=== PATIENT | female | born 1990 | race Caucasian/White ===

== ENCOUNTER 2019-09-03 15:38 | Emergency (ER) | payer BC ==
[2019-09-03] MEDS ORDERED: Sodium Chloride 0.9% 10 ML Syringe FLUSH PRN (16:01)
[2019-09-03] MEDS ORDERED: Sodium Chloride 0.9% 1,000 ML IV ONE (16:23)
--- NOTE | 2019-09-03 16:29 | EDM.PDOC ---
ED HPI GENERAL MEDICAL PROBLEM - General Source of Information: Reports: Patient History Limitations: Reports: No Limitations Pelvic Pain Score (Numeric/FACES): 5 <Karyna Greenwood - Last Filed: 09/03/19 16:14> <Sondra Carter - Last Filed: 09/03/19 20:57> - General Chief Complaint: PRICING ASSOCIATE Problem Stated Complaint: 8 WEEKS AND BLEEDING/CRAMPING/NAUSEA Time Seen by Provider: 09/03/19 15:53 - History of Present Illness INITIAL COMMENTS - FREE TEXT/NARRATIVE: Jaz is a pleasant 28 yo female at 8 weeks gestation who presents to the ED today c/o vaginal bleeding, cramping and nausea. The vaginal bleeding started approximately two weeks ago and she is using about 1.5 pads a day to control the bleeding. She has been nauseous and admits to "dry heaving" every other day. Her cramping feels like period cramps diffusely across her lower abdomen. She had a transvaginal ultrasound done on Sunday at [facility] and they call this morning and told her she "might have an ectopic ." ( Karyna Greenwood) I have read and reviewed the student's HPI and examined the patient and agree with ROMAN Guerrero-student. The patient's PRICING ASSOCIATE is a Vanessa Peterson, who is a fertility specialist in [place]. Patient further notes that her blood type at the last visit is A positive. She states her quantitative hCG level at last visit was 1640. (Sondra Carter) - Related Data Allergies Allergy/AdvReac Type Severity Reaction Status Date / Time Sulfa (Sulfonamide Allergy Seizure Verified 09/03/19 15:57 Antibiotics) Home Meds: Home Meds PNV95/Ferrous Fumarate/FA [ Tablet] 1 tab PO DAILY 09/03/19 [History] Past Medical History - Past Surgical History HEENT Surgical History: Reports: Oral Surgery Musculoskeletal Surgical History: Reports: Other (See Below) Other Musculoskeletal Surgeries/Procedures:: ganglion cyst removed from top of right hand <Karyna Greenwood - Last Filed: 09/03/19 16:14> Social & Family History - Tobacco Use Smoking Status *Q: Never Smoker - Caffeine Use Caffeine Use: Reports: Coffee, Soda, Tea - Recreational Drug Use Recreational Drug Use: No <Karyna Greenwood - Last Filed: 09/03/19 16:14> ED ROS GENERAL - Review of Systems Review Of Systems: See Below Constitutional: Reports: No Symptoms HEENT: Reports: No Symptoms Respiratory: Reports: No Symptoms Cardiovascular: Reports: No Symptoms Endocrine: Reports: No Symptoms GI/Abdominal: Reports: Abdominal Pain : Reports: Other (vaginal bleeding x 2 weeks ) Skin: Reports: No Symptoms Neurological: Reports: No Symptoms Psychiatric: Reports: No Symptoms Hematologic/Lymphatic: Reports: No Symptoms Immunologic: Reports: No Symptoms <Karyna Greenwood - Last Filed: 09/03/19 16:14> ED EXAM - Physical Exam Exam: See Below Exam Limited By: No Limitations General Appearance: Alert, WD/WN, No Apparent Distress Respiratory/Chest: No Respiratory Distress, Lungs Clear, Normal Breath Sounds, No Accessory Muscle Use, Chest Non-Tender Cardiovascular: Normal Peripheral Pulses, Regular Rate, Rhythm, No Edema, No Gallop, No JVD, No Murmur, No Rub GI/Abdominal Exam: Normal Bowel Sounds, Soft, No Organomegaly, No Distention, No Abnormal Bruit, No Mass, Pelvis Stable, Tender (tender to palpation in LLQ). No: Non-Tender Extremities: Normal Inspection, Normal Range of Motion, Non-Tender, Normal Capillary Refill, No Pedal Edema Neurological: Alert, Oriented, CN II-XII Intact, Normal Cognition, Normal Gait, Normal Reflexes, No Motor/Sensory Deficits Psychiatric: Normal Affect, Normal Mood Skin Exam: Warm, Dry, Intact, Normal Color, No Rash Lymphatic: No Adenopathy <Karyna Greenwood - Last Filed: 09/03/19 16:14> - Physical Exam (Female) Exam: Normal External Exam (bright red blood noted at vaginal entrancse), Normal Speculum Exam, Cervical Dilatation (hard to see with blood and patient's body habitus, but looks mildly dilated.), Vaginal Bleeding. No: Tissue Present in Cervix/Vagina Heart Tones: Not [place] Movement: Not Appreciated <Sondra Carter - Last Filed: 09/03/19 20:57> Course <Karyna Greenwood - Last Filed: 09/03/19 16:14> <Sondra Carter - Last Filed: 09/03/19 20:57> - Vital Signs Last Recorded V/S: Last Vital Signs Temp 97.8 F 09/03/19 18:10 Pulse 75 09/03/19 18:10 Resp 18 09/03/19 18:10 BP 119/79 09/03/19 18:10 Pulse Ox 99 09/03/19 18:10 - Orders/Labs/Meds Orders: Active Orders 24 hr Category Date Time Status Peripheral IV Care [RC] . DIRECTED Care 09/03/19 16:01 Active PATIENT RETYPE [BBK] Routine Lab 09/03/19 18:15 Ordered Peripheral IV Insertion Adult [OM.PC] Stat Oth 09/03/19 16:01 Ordered Labs: Laboratory Tests 09/03/19 09/03/19 09/03/19 Range/Units 16:25 16:25 16:25 WBC 14.62 H (3.98-10.04) K/mm3 RBC 5.05 (3.98-5.22) M/mm3 Hgb 13.4 (11.2-15.7) gm/dl Hct 41.9 (34.1-44.9) % MCV 83.0 (79.4-94.8) fl MCH 26.5 (25.6-32.2) pg MCHC 32.0 L (32.2-35.5) g/dl RDW Std Deviation 46.0 (36.4-46.3) fL Plt Count 439 H (182-369) K/mm3 MPV 8.8 L (9.4-12.3) fl Neut % (Auto) 63.9 (34.0-71.1) % Lymph % (Auto) 27.7 (19.3-51.7) % [place] % (Auto) 4.9 (4.7-12.5) % Eos % (Auto) 3.0 (0.7-5.8) Baso % (Auto) 0.3 (0.1-1.2) % Neut # (Auto) 9.34 H (1.56-6.13) K/mm3 Lymph # (Auto) 4.05 H (1.18-3.74) K/mm3 [place] # (Auto) 0.72 H (0.24-0.36) K/mm3 Eos # (Auto) 0.44 H (0.04-0.36) K/mm3 Baso # (Auto) 0.04 (0.01-0.08) K/mm3 Manual Slide Review HCG, Qual (NEGATIVE) HCG, Quant 1763.0 mIU/mL Blood Type A POSITIVE Gel Antibody Screen Negative 09/03/19 Range/Units 16:25 WBC (3.98-10.04) K/mm3 RBC (3.98-5.22) M/mm3 Hgb (11.2-15.7) gm/dl Hct (34.1-44.9) % MCV (79.4-94.8) fl MCH (25.6-32.2) pg MCHC (32.2-35.5) g/dl RDW Std Deviation (36.4-46.3) fL Plt Count (182-369) K/mm3 MPV (9.4-12.3) fl Neut % (Auto) (34.0-71.1) % Lymph % (Auto) (19.3-51.7) % [place] % (Auto) (4.7-12.5) % Eos % (Auto) (0.7-5.8) Baso % (Auto) (0.1-1.2) % Neut # (Auto) (1.56-6.13) K/mm3 Lymph # (Auto) (1.18-3.74) K/mm3 [place] # (Auto) (0.24-0.36) K/mm3 Eos # (Auto) (0.04-0.36) K/mm3 Baso # (Auto) (0.01-0.08) K/mm3 Manual Slide Review HCG, Qual Positive H (NEGATIVE) HCG, Quant mIU/mL Blood Type Gel Antibody Screen Meds: Medications Discontinued Medications Generic Name Dose Route Start Last Admin Trade Name Freq PRN Reason Stop Dose Admin Sodium Chloride 1,000 mls @ 999 mls/hr 09/03/19 16:23 09/03/19 16:30 Normal Saline IV 09/03/19 17:23 999 mls/hr ONETIME ONE Administration Ondansetron HCl 4 mg 09/03/19 17:48 09/03/19 17:52 Zofran IVPUSH 09/03/19 17:49 4 mg ONETIME ONE Administration Sodium Chloride 10 ml 09/03/19 16:01 09/03/19 16:30 Saline Flush FLUSH 10 ml ASDIRECTED PRN Administration Keep Vein Open - Re-Assessments/Exams Free Text/Narrative Re-Assessment/Exam: 09/03/19 16:50 Patient presents to the ED for evaluation of early and vaginal bleeding. She did have an evaluation done on Sunday, and the ultrasound results were somewhat confusing to them, so they come to the ER for management. Apparently they were told that the ultrasound could mean she was having a possible ectopic . I did gets an IV placed, some labs initially to include CBC, blood type, hCG Quant and call. An OB transvaginal ultrasound order was also placed, the [facility] did fax over the results of the transvaginal pelvic ultrasound done on Sunday, the impression was that there was no gestational sac or pole identified. Endometrium is heterogenous in appearance and measures approximately 1.1 cm. Endometrium is decreased in size since 08/25/19 weren't measured approximately 2.3 cm. Normal appearance of both ovaries which have multiple subcentimeter follicles within it. Trace amount of fluid within the posterior cul-de-sac. No discrete endometrial or uterine lesions were defined. The uterus measures approximate 4.3 x 7.6 x 5.6 cm. Right ovary measures 1.9 x 3.2 x 2.3 cm, left ovary measures 1.9 x 3.4 x 2.0 cm. This was performed at the [facility] in [facility]. Upon review of the ultrasound results, it appears that there is no fetus identified at all, so its highly unlikely that she is having an ectopic and more likely that she had passed any sort of tissue that she would've already had. 09/03/19 17:49 Patient's ultrasound has been completed, and demonstrates again no gestational sac within the endometrial cavity. Endometrial thickness at 1.2 cm. Ovary within normal limits, no other adnexal abnormalities, with no free fluid. Radiology read this as findings most likely represent miscarriage. The patient states she had her hCG level done yesterday and reported it to us as 1640, and our lab has resulted this at 1763 today. I have called Dr. Ríos for consult to see what she would recommend for further treatment. 09/03/19 17:59 Dr. Ríos did call back, and states there is not a lot to be done on our end for management, she states that the bleeding should be normal, and notes this is likely an impending miscarriage. She states that the patient has any sort of pain increased from just light cramping she is to return for evaluation. The patient is to follow-up with her PRICING ASSOCIATE tomorrow and have the quantitative hCG followed closely to make sure that everything is progressing the way it should. (Sondra Carter) Departure <Karyna Greenwood - Last Filed: 09/03/19 16:14> - Departure Time of Disposition: 18:01 - Discharge Information *PRESCRIPTION DRUG MONITORING PROGRAM REVIEWED*: No *COPY OF PRESCRIPTION DRUG MONITORING REPORT IN PATIENT SAM: No <Sondra Carter - Last Filed: 09/03/19 20:57> - Departure Disposition: Home, Self-Care 01 Clinical Impression: Incomplete - Discharge Information Instructions: Incomplete Miscarriage Referrals: Vanessa Peterson MD [Primary Care Provider] - Forms: ED Department Discharge Additional Instructions: You were evaluated in the ER today regarding your vaginal bleeding in . Your case was discussed with our PRICING ASSOCIATE on-call, Dr. Alayna Ríos, and after review of your ultrasound and labs, it is her professional opinion that this is an impending miscarriage. Your quantitative level at our visit was 1763. Your evaluation in this ER demonstrated that there is no fetus within the uterus , nor could one be identified on the ovaries or ovarian tubes. Vaginal bleeding is normal during this process, however if you should develop any sort of increased pain from just normal light cramping, or increased vaginal bleeding, this would be cause for concern to return directly to the ER for immediate management. You may take some [id number] Tylenol or ibuprofen 6 hours. for further pain management. Recommend that you follow up with the PRICING ASSOCIATE tomorrow, and have the hCG quantitative level rechecked to make sure that it is trending downward, and that you're miscarriage is progressing appropriately. Please return to the ED if your symptoms should change or worsen. - My Orders Last 24 Hours: My Active Orders 09/03/19 16:01 Peripheral IV Care [RC] . DIRECTED Peripheral IV Insertion Adult [OM.PC] Stat 09/03/19 18:15 PATIENT RETYPE [BBK] Routine - Assessment/Plan Last 24 Hours: My Active Orders 09/03/19 16:01 Peripheral IV Care [RC] . DIRECTED Peripheral IV Insertion Adult [OM.PC] Stat 09/03/19 18:15 PATIENT RETYPE [BBK] Routine
--- NOTE | 2019-09-03 17:29 | US ---
First trimester obstetrical ultrasound: Multiple real-time images were obtained transvaginally. Comparison: No previous study for current . Findings: No gestational sac is seen within the endometrial cavity. Endometrial thickness measures 1.2 cm. Ovaries appear within normal limits. No adnexal abnormalities are appreciated. No free fluid is seen. Impression: 1. No gestational sac is seen. Findings most likely represent miscarriage. Diagnostic code #3
[2019-09-03] MEDS ORDERED: Ondansetron 4 MG/2 ML SDV IVPUSH ONE (17:48)
== END 2019-09-03 18:10 | disposition home or self-care (01) ==
LOC: JD.ED 15:38
DX: O03.4 Incomplete spontaneous abortion without complication (principal); Z88.2 Allergy status to sulfonamides
CPT/HCPCS: 36415; 76817; 84702; 84703; 85025; 86850; 86900; 86901; 96361; 96374; 99284; J2405; J7040

== ENCOUNTER 2019-09-07 12:46 | Emergency (ER) | payer BC ==
[2019-09-07] MEDS ORDERED: Ondansetron 4 MG/2 ML SDV IVPUSH ONE (13:28)
[2019-09-07] MEDS ORDERED: HYDROmorphone 0.5 MG/0.5 ML Syringe IVPUSH ONE (13:28)
--- NOTE | 2019-09-07 13:29 | EDM.PDOC ---
ED HPI GENERAL MEDICAL PROBLEM - General Chief Complaint: OUTSIDE MAINTENANCE WORKER Problem Stated Complaint: POSSIBLE ECTOPIC Time Seen by Provider: 09/07/19 13:10 Source of Information: Reports: Patient History Limitations: Reports: No Limitations - History of Present Illness INITIAL COMMENTS - FREE TEXT/NARRATIVE: 28-year-old female who is 1 para 0 presents to the hospital due to increased lower abdominal cramping pain and heavy vaginal flow. Was felt to be around 04 July. She was felt to be 8 weeks however ultrasound done last September 01 did not reveal any signs of the pole or intrauterine . Certain the hospital was for a possible ectopic since her hormone of was elevated at 1640. Quantitative BHCG elevated into the 1783 range 2 days later. . Repeat ultrasound by -- OUTSIDE MAINTENANCE WORKER in [facility] did not show any intrauterine . Therefore the working diagnosis was an occult ectopic . She was given 2 injections one in each buttock of a dosage of methotrexate each is a weight based medication.. Patient has had increased bleeding start primary this morning with associated increased abdominal cramping pain. He was instructed to come to to the hospital the pain worsened considerably got better. She is post soaked about a pad and half in the last 24 hours. Certainly in no distress at this point time with minimal blood vaginal bleeding. He states the pain is worsened by sitting trying to have a bowel movement or to void. When she's lying flat pain is a 5 out of 10 when she sits it's 8 out of 10. Patient any clots or tissue per vagina. Patient has blood type group a positive Onset: Gradual Onset Date: 09/05/19 (Pain is suprapubic. Mildly into her back.) Duration: Day(s):, Getting Worse, Waxing/Waning Location: Reports: Abdomen Quality: Reports: Ache (Suprapubic abdominal pain radiating into her back.) Severity: Moderate Improves with: Reports: None Worsens with: Reports: None Context: Denies: Activity, Exercise, Lifting, Sick Contact, Trauma, Other Associated Symptoms: Reports: Nausea/Vomiting. Denies: No Other Symptoms, Confusion, Chest Pain, Cough, cough w sputum, Diaphoresis, Fever/Chills, Headaches, Loss of Appetite, Malaise, Rash, Seizure, Shortness of Breath, Syncope, Weakness (Nausea without vomiting) Treatments UMBRELLA TIPPER: Reports: Other (see below) (Motrin.) Lower Abdominal Pain Score (Numeric/FACES): 5 - Related Data Allergies Allergy/AdvReac Type Severity Reaction Status Date / Time Sulfa (Sulfonamide Allergy Seizure Verified 09/07/19 12:54 Antibiotics) Home Meds: Home Meds oxyCODONE HCl/Acetaminophen [Percocet 5-325 mg Tablet] 1 - 2 each PO Q4H PRN # 18 tablet 09/07/19 [Rx] Past Medical History : 1 Para: 0 - Past Surgical History HEENT Surgical History: Reports: Oral Surgery Musculoskeletal Surgical History: Reports: Other (See Below) Other Musculoskeletal Surgeries/Procedures:: ganglion cyst removed from top of right hand Social & Family History - Tobacco Use Smoking Status *Q: Never Smoker - Caffeine Use Caffeine Use: Reports: Coffee, Soda, Tea - Living Situation & Occupation Living situation: Reports: Single Occupation: Employed ED ROS GENERAL - Review of Systems Review Of Systems: See Below Constitutional: Reports: Malaise, Weakness, Fatigue, Decreased Appetite. Denies : Fever, Chills HEENT: Reports: No Symptoms Respiratory: Reports: No Symptoms Cardiovascular: Reports: No Symptoms Endocrine: Reports: Fatigue GI/Abdominal: Reports: Abdominal Pain (See history of present illness) : Reports: Other (Fairly heavy bleeding per vagina with associated dysmenorrhea. Known to be with no intrauterine identified on ultrasound in the last week.) Musculoskeletal: Reports: Back Pain Skin: Reports: No Symptoms (Low back pain.) Neurological: Reports: No Symptoms Psychiatric: Reports: No Symptoms ( Concern for ectopic still exists.) Hematologic/Lymphatic: Reports: No Symptoms Immunologic: Reports: No Symptoms ED EXAM - Physical Exam Exam: See Below Exam Limited By: Intoxication General Appearance: Alert, WD/WN, Mild Distress, Other (Temperatures 36.7. Pulse is 98 in sinus respiratory 16 BP 124/86 with sats of 99% on room air.) Eye Exam: Bilateral Eye: Normal Inspection (Normal) Throat/Mouth: Normal Inspection, Normal Lips, Normal Oropharynx Neck: Normal Inspection, Supple, Non-Tender, Full Range of Motion. No: Lymphadenopathy (L), Lymphadenopathy (R), Thyromegaly Respiratory/Chest: No Respiratory Distress, Lungs Clear, Normal Breath Sounds, No Accessory Muscle Use, Chest Non-Tender Cardiovascular: Regular Rate, Rhythm, No Edema, No Gallop, No Murmur, No Rub GI/Abdominal Exam: Soft (Bowel sounds are quiet sent and all 4 quadrants.), No Organomegaly, No Mass, Pelvis Stable, Tender, Abnormal Bowel Sounds. No: Guarding, Rigid (Mild tenderness suprapubically.), Rebound (Female) Exam: Enlarged Uterus, Vaginal Bleeding (Uterus feels 4 weeks in size. Bleeding per vagina.), Other (No tissue palpable at the cervix which is closed.). No: Cervical Dilatation Back Exam: Normal Inspection, Full Range of Motion. No: CVA Tenderness (L), CVA Tenderness (R) Extremities: Normal Inspection, Normal Range of Motion, Non-Tender, No Pedal Edema, Normal Capillary Refill Neurological: Alert, Oriented, CN II-XII Intact, Normal Cognition Psychiatric: Normal Affect, Normal Mood Skin Exam: Warm, Dry, Intact, Normal Color, No Rash Course - Vital Signs Last Recorded V/S: Last Vital Signs Temp 36.7 C 09/07/19 12:59 Pulse 98 09/07/19 12:59 Resp 16 09/07/19 12:59 BP 124/86 09/07/19 12:59 Pulse Ox 99 09/07/19 12:59 - Orders/Labs/Meds Labs: Laboratory Tests 09/07/19 09/07/19 Range/Units 13:53 13:53 WBC 12.23 H (3.98-10.04) K/mm3 RBC 4.77 (3.98-5.22) M/mm3 Hgb 12.6 (11.2-15.7) gm/dl Hct 39.6 (34.1-44.9) % MCV 83.0 (79.4-94.8) fl MCH 26.4 (25.6-32.2) pg MCHC 31.8 L (32.2-35.5) g/dl RDW Std Deviation 45.6 (36.4-46.3) fL Plt Count 439 H (182-369) K/mm3 MPV 8.9 L (9.4-12.3) fl Neut % (Auto) 55.7 (34.0-71.1) % Lymph % (Auto) 35.0 (19.3-51.7) % Greene % (Auto) 4.8 (4.7-12.5) % Eos % (Auto) 3.9 (0.7-5.8) Baso % (Auto) 0.4 (0.1-1.2) % Neut # (Auto) 6.80 H (1.56-6.13) K/mm3 Lymph # (Auto) 4.28 H (1.18-3.74) K/mm3 Greene # (Auto) 0.59 H (0.24-0.36) K/mm3 Eos # (Auto) 0.48 H (0.04-0.36) K/mm3 Baso # (Auto) 0.05 (0.01-0.08) K/mm3 Manual Slide Review Abnormal smear Sodium 138 (136-145) mEq/L Potassium 4.0 (3.5-5.1) mEq/L Chloride 105 (98-107) mEq/L Carbon Dioxide 25 (21-32) mEq/L Anion Gap 12.0 (5-15) BUN 5 L (7-18) mg/dL Creatinine 0.7 (0.55-1.02) mg/dL Est Cr Clr Drug Dosing 121.78 mL/min Estimated GFR (MDRD) > 60 (>60) mL/min BUN/Creatinine Ratio 7.1 L (14-18) Glucose 74 (74-106) mg/dL Calcium 8.7 (8.5-10.1) mg/dL Total Bilirubin 0.4 (0.2-1.0) mg/dL AST 18 (15-37) U/L ALT 37 (14-59) U/L Alkaline Phosphatase 84 (46-116) U/L Total Protein 7.8 (6.4-8.2) g/dl Albumin 3.4 (3.4-5.0) g/dl Globulin 4.4 gm/dL Albumin/Globulin Ratio 0.8 L (1-2) HCG, Quant 1267.0 mIU/mL Meds: Medications Discontinued Medications Generic Name Dose Route Start Last Admin Trade Name Freq PRN Reason Stop Dose Admin Hydromorphone HCl 0.5 mg 09/07/19 13:28 09/07/19 13:58 Dilaudid IVPUSH 09/07/19 13:29 0.5 mg ONETIME ONE Administration Dextrose/Sodium Chloride 1,000 mls @ 250 mls/hr 09/07/19 13:30 09/07/19 13:56 Dextrose 5%-Normal Saline IV 250 mls/hr ASDIRECTED MIGUEL ANGEL Administration Ondansetron HCl 4 mg 09/07/19 13:28 09/07/19 13:57 Zofran IVPUSH 09/07/19 13:29 4 mg ONETIME ONE Administration - Radiology Interpretation Free Text/Narrative:: 28-year-old female who is 1 para 0 presents to the ED for follow-up of increased vaginal bleeding per vagina and suprapubic pressure pain discomfort. She her last normal menstrual period was considered to be 04 July. She presented to the clinic last week Sunday, 01 September and had an ultrasound performed with no evidence of an intrauterine . Please see hormone was elevated at 1630. Went up 2 days later to 1783. Again ultrasound repeated did not reveal any evidence of a intrauterine . Therefore working diagnosis is an ECTOPIC . Patient received methotrexate intramuscularly in both but talks on . She was told to expect heavy bleeding per vagina 3 days later which is today. Committed have a quantitative beta-hCG repeated as well. Pain is 5 out of 10. It is 8 out of 10 when she sits up or tries to void. Examination shows a 4 week size uterus with cervix closed no tissue in the vagina.. Blood bleeding per blood fingers. No masses were appreciable in either adnexa but she is rather heavyset and difficult to feel the adnexa. Plan repeat transvaginal ultrasound. Repeat serial beta-hCGs CBC and CMP. Given IV fluids D5 normal saline at 150 mils per hour. Given Dilaudid 0.5 mg IV with Zofran 4 mg IV. - Re-Assessments/Exams Free Text/Narrative Re-Assessment/Exam: 09/07/19 14:27 White count remained mildly elevated at 12.23. Auto differential shows 56% neutrophils no bands cells appreciated. Hemoglobin is 12.6 with hematocrit of 39.6. Platelet count slightly elevated at 439,000. Free Text/Narrative Re-Assessment/Exam: 09/07/19 14:35 Transvaginal ultrasound has been completed. Once again the intrauterine cavity contains no evidence of a gestational sac or pole. the decidua appears to be thinning quite a bit compared to 1 week ago. The cervical canal is empty. There is a area of fluid in the cul-de-sac 3.30 cm x 2 cm. This seems to be a bit more than one would expect physiologically. There is an area of focal soft tissue material noted next to the right ovary. This is difficult to exclude an ectopic . Left ovary appears unremarkable. Awaiting her quantitative beta-hCG 09/07/19 15:15 Chemistry is now back showing a sodium of 138. Potassium 4.0. Chloride 105 with a bicarbonate 25. Anion gap is 12.0. BUN is 5. Creatinine is 0.7. GFR remains greater than 60. Glucose is 74. Calcium 8.7 bilirubin is 0.4 remainder of the liver function is normal. Quantitative beta-hCG continues to fall it is now 1267. Patient is feeling much improved. She does not have any evidence of a surgical abdomen. I did discuss the case with Dr. Ríos director of acquisitions OUTSIDE MAINTENANCE WORKER and she agreed that if there was no acute abdomen with active bleeding that surgery was not likely indicated. Repeat beta-hCG is due on the . Discussed the findings with the patient. Decision made to give her some Percocet tablets to be available to her for pain relief. Were not provided by her primary OUTSIDE MAINTENANCE WORKER after receiving the methotrexate injections. Cramping and bleeding are to be anticipated. She will have repeat labs done in 3 days time. Departure - Departure Time of Disposition: 16:03 Disposition: Home, Self-Care 01 Condition: Fair Clinical Impression: Ectopic Qualifiers: Location of ectopic : other location Intrauterine status: without intrauterine Qualified Code(s): O00.80 - Other ectopic without intrauterine Abdominal pain Qualifiers: Abdominal location: lower abdomen, unspecified Qualified Code(s): R10.30 - Lower abdominal pain, unspecified - Discharge Information *PRESCRIPTION DRUG MONITORING PROGRAM REVIEWED*: Not Applicable *COPY OF PRESCRIPTION DRUG MONITORING REPORT IN PATIENT SAM: Not Applicable Prescriptions: oxyCODONE HCl/Acetaminophen [Percocet 5-325 mg Tablet] 1 - 2 each PO Q4H PRN # 18 tablet PRN Reason: pain relief. Instructions: Ectopic , [id number] Referrals: Vanessa Peterson MD [Primary Care Provider] - Forms: ED Department Discharge Additional Instructions: Evaluation the emergent today in regards to increased vaginal bleeding and increased suprapubic pain and pain particularly notice in the pelvis when you sit up. By dates you are supposed to be around 8 weeks gestation. Ultrasound done last Sunday revealed no evidence of a intrauterine . This was highly suggestive therefore for a ectopic or tubal . However none could be identified on ultrasound at that time and also ultrasound done 3 days later. Since there was no intrauterine on the second ultrasound it is strongly suspect that she did have a hidden oral called ectopic . Today 's beta-hCG hCG quantitative was reduced to 1267. Therefore the methotrexate you received intramuscularly on last week appears to be working. We usually expect at least a 15% drop in the beta-hCG after 4 days. On today's ultrasound it is suspect that there is a soft tissue mass adjacent to the right ovary highly suspicious for ectopic in the right adnexa which is the tissue between the ovary and the fallopian tube. At this time there is no evidence that you need surgery or fifth the pain suddenly becomes very intense or severe please return to the ER immediately. Otherwise we'll let the methotrexate do its job. He will needn't repeat beta-hCG in 3 days time and have this sent to Dr. Hernandez. In the meantime you may use Percocet tabs 5// 25 milligrams one or 2 every 4-6 hours necessary for pain relief due to the severe cramping. Plenty of fluids. Activity as tolerated.
[2019-09-07] MEDS ORDERED: Dextrose 5%-0.9% NaCl 1,000 ML IV SCH (13:30)
--- NOTE | 2019-09-07 15:12 | US ---
1st trimester obstetrical ultrasound: Multiple real-time images were obtained transvaginally. Comparison: Previous obstetrical ultrasound 09/03/19. No intrauterine gestational sac is seen. Focal soft tissue material is noted next to the right ovary. Difficult to exclude ectopic . Small amount of free fluid is seen within the pelvis. Left ovary is unremarkable. Impression: 1. Focal soft tissue material next to the right ovary. This is suspicious for ectopic if patient has positive test. This is an interval change from previous exam. 2. No intrauterine gestational sac is seen. 3. Small amount of free fluid within the pelvis is noted. Diagnostic code #5
== END 2019-09-07 16:27 | disposition home or self-care (01) ==
LOC: JD.ED 12:46
DX: O00.80 Other ectopic pregnancy without intrauterine pregnancy (principal); Z88.2 Allergy status to sulfonamides
CPT/HCPCS: 36415; 76817; 80053; 84702; 85025; 96361; 96374; 96375; 99284; J1170; J2405; J7042

== ENCOUNTER 2019-09-25 03:56 | Emergency (ER) | payer BC ==
[2019-09-25] MEDS ORDERED: Ondansetron 4 MG/2 ML SDV IVPUSH ONE (04:21)
[2019-09-25] MEDS ORDERED: Sodium Chloride 0.9% 1,000 ML IV STA (04:21)
[2019-09-25] MEDS ORDERED: HYDROmorphone 1 MG/ML Syringe IVPUSH ONE (04:22)
--- NOTE | 2019-09-25 04:27 | EDM.PDOC ---
ED HPI GENERAL MEDICAL PROBLEM - General Chief Complaint: Abdominal Pain Stated Complaint: ABDOMAIN PAIN Time Seen by Provider: 09/25/19 04:14 Source of Information: Reports: Patient History Limitations: Reports: No Limitations - History of Present Illness INITIAL COMMENTS - FREE TEXT/NARRATIVE: The patient presents with lower abdominal pain, nausea and vomiting. This pain work her up this morning. She has no fever, chills, cough, congestion, runny nose, chest pain or shortness of breath. She had an ectopic last month and had methotrexate. She was seen last week and her HCG was down to 200. She had no problems such as pain or bleeding after the last time she was seen here September 07. She still has her appendix and gallbladder. She has no dysuria or hematuria. Onset: Sudden Duration: Hour(s): Location: Reports: Abdomen Quality: Reports: Sharp Severity: Severe Improves with: Reports: None Worsens with: Reports: None Associated Symptoms: Reports: Nausea/Vomiting. Denies: Chest Pain, Cough, Fever /Chills, Headaches, Shortness of Breath Lower Abdominal Pain Score (Numeric/FACES): 8 - Related Data Allergies Allergy/AdvReac Type Severity Reaction Status Date / Time Sulfa (Sulfonamide Allergy Seizure Verified 09/25/19 04:07 Antibiotics) Home Meds: Home Meds Hydrocodone/Acetaminophen [Hydrocodon-Acetaminophen 5-325] 1 - 2 each PO Q6HR PRN #20 tablet 09/25/19 [Rx] Ondansetron [Zofran ODT] 4 mg PO Q6H PRN #20 tab.dis 09/25/19 [Rx] Past Medical History [employer] History: Reports: Ectopic - Past Surgical History HEENT Surgical History: Reports: Oral Surgery Social & Family History - Tobacco Use Smoking Status *Q: Never Smoker - Caffeine Use Caffeine Use: Reports: Soda - Recreational Drug Use Recreational Drug Use: No - Living Situation & Occupation Living situation: Reports: Single Occupation: Employed ED ROS GENERAL - Review of Systems Review Of Systems: See Below Constitutional: Reports: No Symptoms HEENT: Reports: No Symptoms Respiratory: Reports: No Symptoms Cardiovascular: Reports: No Symptoms Endocrine: Reports: No Symptoms GI/Abdominal: Reports: Abdominal Pain, Nausea, Vomiting. Denies: Diarrhea : Reports: No Symptoms Musculoskeletal: Reports: No Symptoms Skin: Reports: No Symptoms ED EXAM, GI/ABD - Physical Exam Exam: See Below Exam Limited By: No Limitations General Appearance: Alert, No Apparent Distress Ears: Normal External Exam Nose: Normal Inspection Head: Atraumatic, Normocephalic Neck: Normal Inspection Respiratory/Chest: No Respiratory Distress, Lungs Clear, Normal Breath Sounds Cardiovascular: Regular Rate, Rhythm, No Edema, No Murmur GI/Abdominal Exam: Soft, No Organomegaly, No Mass, Tender (Moderate to severe pain to the left lower abdomen with some guarding) Course - Vital Signs Last Recorded V/S: Last Vital Signs Temp 97.8 F 09/25/19 04:05 Pulse 88 09/25/19 04:05 Resp 18 09/25/19 04:05 BP 132/54 L 09/25/19 04:05 Pulse Ox 94 L 09/25/19 04:05 - Orders/Labs/Meds Orders: Active Orders 24 hr Category Date Time Status Peripheral IV Care [RC] . DIRECTED Care 09/25/19 04:21 Active Sodium Chloride 0.9% [Saline Flush] Med 09/25/19 04:21 Active 10 ml FLUSH ASDIRECTED PRN ED Antiemetic Medication Reflex [OM.PC] Stat Oth 09/25/19 04:21 Ordered Peripheral IV Insertion Adult [OM.PC] Stat Oth 09/25/19 04:21 Ordered Medication Orders Sodium Chloride (Saline Flush) 10 ml FLUSH ASDIRECTED PRN PRN Reason: Keep Vein Open Last Admin: 09/25/19 05:52 Dose: 10 ml Admin: 09/25/19 04:33 Dose: 10 ml Labs: Laboratory Tests 09/25/19 09/25/19 09/25/19 Range/Units 04:30 04:30 04:30 WBC 10.58 H (3.98-10.04) K/mm3 RBC 4.97 (3.98-5.22) M/mm3 Hgb 13.6 (11.2-15.7) gm/dl Hct 40.8 (34.1-44.9) % MCV 82.1 (79.4-94.8) fl MCH 27.4 (25.6-32.2) pg MCHC 33.3 (32.2-35.5) g/dl RDW Std Deviation 44.4 (36.4-46.3) fL Plt Count 522 H D (182-369) K/mm3 MPV 9.1 L (9.4-12.3) fl Neut % (Auto) 65.6 (34.0-71.1) % Lymph % (Auto) 23.7 (19.3-51.7) % Cannon % (Auto) 6.0 (4.7-12.5) % Eos % (Auto) 4.3 (0.7-5.8) Baso % (Auto) 0.4 (0.1-1.2) % Neut # (Auto) 6.95 H (1.56-6.13) K/mm3 Lymph # (Auto) 2.51 (1.18-3.74) K/mm3 Cannon # (Auto) 0.63 H (0.24-0.36) K/mm3 Eos # (Auto) 0.45 H (0.04-0.36) K/mm3 Baso # (Auto) 0.04 (0.01-0.08) K/mm3 Sodium 139 (136-145) mEq/L Potassium 3.8 (3.5-5.1) mEq/L Chloride 105 (98-107) mEq/L Carbon Dioxide 22 (21-32) mEq/L Anion Gap 15.8 H (5-15) BUN 12 (7-18) mg/dL Creatinine 0.9 (0.55-1.02) mg/dL Est Cr Clr Drug Dosing 94.72 mL/min Estimated GFR (MDRD) > 60 (>60) mL/min BUN/Creatinine Ratio 13.3 L (14-18) Glucose 88 (74-106) mg/dL Calcium 8.7 (8.5-10.1) mg/dL Total Bilirubin 0.3 (0.2-1.0) mg/dL AST 12 L (15-37) U/L ALT 28 (14-59) U/L Alkaline Phosphatase 90 (46-116) U/L Total Protein 7.8 (6.4-8.2) g/dl Albumin 3.5 (3.4-5.0) g/dl Globulin 4.3 gm/dL Albumin/Globulin Ratio 0.8 L (1-2) Lipase 125 (73-393) U/L HCG, Quant 26.0 mIU/mL Urine Color (Yellow) Urine Appearance (Clear) Urine pH (5.0-8.0) Ur Specific [place] (1.005-1.030) Urine Protein (Negative) Urine Glucose (UA) (Negative) Urine Ketones (Negative) Urine Occult Blood (Negative) Urine Nitrite (Negative) Urine Bilirubin (Negative) Urine Urobilinogen (0.2-1.0) Ur Leukocyte Esterase (Negative) Urine RBC (0-5) /hpf Urine WBC (0-5) /hpf Ur Epithelial Cells (0-5) /hpf Urine Bacteria (FEW) /hpf Urine Mucus (FEW) /hpf 09/25/19 Range/Units 05:37 WBC (3.98-10.04) K/mm3 RBC (3.98-5.22) M/mm3 Hgb (11.2-15.7) gm/dl Hct (34.1-44.9) % MCV (79.4-94.8) fl MCH (25.6-32.2) pg MCHC (32.2-35.5) g/dl RDW Std Deviation (36.4-46.3) fL Plt Count (182-369) K/mm3 MPV (9.4-12.3) fl Neut % (Auto) (34.0-71.1) % Lymph % (Auto) (19.3-51.7) % Cannon % (Auto) (4.7-12.5) % Eos % (Auto) (0.7-5.8) Baso % (Auto) (0.1-1.2) % Neut # (Auto) (1.56-6.13) K/mm3 Lymph # (Auto) (1.18-3.74) K/mm3 Cannon # (Auto) (0.24-0.36) K/mm3 Eos # (Auto) (0.04-0.36) K/mm3 Baso # (Auto) (0.01-0.08) K/mm3 Sodium (136-145) mEq/L Potassium (3.5-5.1) mEq/L Chloride (98-107) mEq/L Carbon Dioxide (21-32) mEq/L Anion Gap (5-15) BUN (7-18) mg/dL Creatinine (0.55-1.02) mg/dL Est Cr Clr Drug Dosing mL/min Estimated GFR (MDRD) (>60) mL/min BUN/Creatinine Ratio (14-18) Glucose (74-106) mg/dL Calcium (8.5-10.1) mg/dL Total Bilirubin (0.2-1.0) mg/dL AST (15-37) U/L ALT (14-59) U/L Alkaline Phosphatase (46-116) U/L Total Protein (6.4-8.2) g/dl Albumin (3.4-5.0) g/dl Globulin gm/dL Albumin/Globulin Ratio (1-2) Lipase (73-393) U/L HCG, Quant mIU/mL Urine Color Light yellow (Yellow) Urine Appearance Clear (Clear) Urine pH 7.0 (5.0-8.0) Ur Specific [place] 1.015 (1.005-1.030) Urine Protein Negative (Negative) Urine Glucose (UA) Negative (Negative) Urine Ketones Negative (Negative) Urine Occult Blood Negative (Negative) Urine Nitrite Negative (Negative) Urine Bilirubin Negative (Negative) Urine Urobilinogen 0.2 (0.2-1.0) Ur Leukocyte Esterase Negative (Negative) Urine RBC Not seen (0-5) /hpf Urine WBC Not seen (0-5) /hpf Ur Epithelial Cells 0-5 (0-5) /hpf Urine Bacteria Not seen (FEW) /hpf Urine Mucus Not seen (FEW) /hpf Meds: Medications Generic Name Dose Route Start Last Admin Trade Name [place] PRN Reason Stop Dose Admin Sodium Chloride 10 ml 09/25/19 04:21 09/25/19 05:52 Saline Flush FLUSH 10 ml ASDIRECTED PRN Administration Keep Vein Open Discontinued Medications Generic Name Dose Route Start Last Admin Trade Name [place] PRN Reason Stop Dose Admin Diatrizoate Meglum/Diatrizoate Sod 90 ml 09/25/19 05:26 09/25/19 05:51 Gastrografin 37% PO 09/25/19 05:27 90 ml ONETIME ONE Administration Hydromorphone HCl 1 mg 09/25/19 04:22 09/25/19 04:32 Dilaudid IVPUSH 09/25/19 04:23 1 mg ONETIME ONE Administration Sodium Chloride 1,000 mls @ 1,000 mls/hr 09/25/19 04:21 09/25/19 04:32 Normal Saline IV 09/25/19 05:20 1,000 mls/hr .BOLUS STA Administration Iopamidol 100 ml 09/25/19 05:27 09/25/19 05:51 Isovue-300 (61%) IVPUSH 09/25/19 05:28 100 ml ONETIME ONE Administration Ondansetron HCl 4 mg 09/25/19 04:21 09/25/19 04:32 Zofran IVPUSH 09/25/19 04:22 4 mg ONETIME ONE Administration - Re-Assessments/Exams Free Text/Narrative Re-Assessment/Exam: 09/25/19 04:27 I ordered an IV NS 1L bolus, zofran 4mg IV, dilaudid 1mg IV, labs, UA and a CT of her abdomen and pelvis. 09/25/19 06:54 Her WBC was elevated at 10.58. Her anion gap was elevated at 15.8. Her lipase is normal at 125. Her HCG was 26. Her UA shows no UTI. Her CT shows irregular fatty infiltration within the liver. Mild haziness within the pelvis believed to represent post surgical change. Small amount of fluid within the pelvis with no discrete fluid collections of abscess. Other findings which are believed to be incidental. Nothing acute is appreciated. She did not have surgery. Dr Lamas took a look again and this could be necrosis from the ectopic. She had methotrexate a couple weeks ago. She has a follow up appointment with her [employer] doctor today in [place]. I will give her something for pain and nausea. Departure - Departure Time of Disposition: 07:05 Disposition: Home, Self-Care 01 Condition: Good Clinical Impression: Abdominal pain Qualifiers: Abdominal location: lower abdomen, unspecified Qualified Code(s): R10.30 - Lower abdominal pain, unspecified Vomiting Qualifiers: Vomiting type: unspecified Vomiting Intractability: non-intractable Nausea presence: with nausea Qualified Code(s): R11.2 - Nausea with vomiting, unspecified - Discharge Information *PRESCRIPTION DRUG MONITORING PROGRAM REVIEWED*: No *COPY OF PRESCRIPTION DRUG MONITORING REPORT IN PATIENT SAM: No Prescriptions: Hydrocodone/Acetaminophen [Hydrocodon-Acetaminophen 5-325] 1 - 2 each PO Q6HR PRN #20 tablet PRN Reason: Pain Ondansetron [Zofran ODT] 4 mg PO Q6H PRN #20 tab.dis PRN Reason: Nausea\vomiting Referrals: Vanessa Peterson MD [Primary Care Provider] - 1 Day Forms: ED Department Discharge Additional Instructions: Follow up with your doctor today. Take motrin or tylenol for pain. If that does not help, try the hydrocodone. Take zofran every 6 hours as needed for nausea and vomiting. Please return if you are worse. - My Orders Last 24 Hours: My Active Orders 09/25/19 04:21 Peripheral IV Care [RC] . DIRECTED Sodium Chloride 0.9% [Saline Flush] 10 ml FLUSH ASDIRECTED PRN ED Antiemetic Medication Reflex [OM.PC] Stat Peripheral IV Insertion Adult [OM.PC] Stat - Assessment/Plan Last 24 Hours: My Active Orders 09/25/19 04:21 Peripheral IV Care [RC] . DIRECTED Sodium Chloride 0.9% [Saline Flush] 10 ml FLUSH ASDIRECTED PRN ED Antiemetic Medication Reflex [OM.PC] Stat Peripheral IV Insertion Adult [OM.PC] Stat
[2019-09-25] MEDS: Sodium Chloride 0.9% 10 ML Syringe FLUSH PRN ×2 (04:33→05:52)
[2019-09-25] MEDS ORDERED: Diatrizoate Meglumine/Diatrizoate Sodium 37% 120 ML Bottle PO ONE (05:26)
[2019-09-25] MEDS ORDERED: Iopamidol 612 MG/ML 100 ML Bottle IVPUSH ONE (05:27)
--- NOTE | 2019-09-25 06:31 | CT ---
CT abdomen and pelvis Technique: Multiple axial sections were obtained from above the dome of the diaphragm inferiorly through the pubic symphysis. Intravenous contrast and oral contrast has been given. Delayed images were obtained through the bladder. Findings: Visualized lung bases show nothing acute. Liver shows areas of fatty infiltration. Spleen appears within normal limits. Adrenal glands show no nodule. Kidneys show symmetric contrast enhancement without hydronephrosis or mass. Pancreas is within normal limits. Gallbladder contains no calcified gallstones. Aorta shows no aneurysm. No retroperitoneal adenopathy or mesenteric abnormalities are seen. Slight haziness within the pelvis is seen most likely representing postoperative change. No focal fluid collections are seen to indicate abscess. Minimal free fluid is seen within the pelvis. Appendix not visualized with certainty. Delayed images shows contrast within the distal ureters and within the bladder. Bone window settings were reviewed which shows a small fat-containing umbilical hernia. Disc space narrowing noted at L5-S1 with vacuum phenomena. Impression: 1. Irregular fatty infiltration within the liver. 2. Mild haziness within the pelvis believed to represent post surgical change. 3. Small amount of fluid within the pelvis with no discrete fluid collections of abscess. 4. Other findings which are believed to be incidental. Nothing acute is appreciated. Diagnostic code #2
== END 2019-09-25 07:18 | disposition home or self-care (01) ==
LOC: JD.ED 03:56
DX: R10.32 Left lower quadrant pain (principal); R11.2 Nausea with vomiting, unspecified; Z88.2 Allergy status to sulfonamides
CPT/HCPCS: 36415; 74177; 80053; 81001; 83690; 84702; 85025; 96361; 96374; 96375; 99284; J1170; J2405; J7040; Q9963; Q9967

== ENCOUNTER 2021-08-06 10:58 | Emergency (ER) | payer BC ==
[2021-08-06] MEDS ORDERED: Albuterol 6.7 GM Inhaler INH ONE (11:42)
--- NOTE | 2021-08-06 13:30 | EDM.PDOC ---
ED HPI GENERAL MEDICAL PROBLEM - General Chief Complaint: Respiratory Problem Stated Complaint: COVID SX Time Seen by Provider: 08/06/21 11:17 Source of Information: Reports: Patient History Limitations: Reports: No Limitations - History of Present Illness INITIAL COMMENTS - FREE TEXT/NARRATIVE: 30-year-old female presents the emergency department with complaints of cough, shortness of breath, nausea, myalgias, chills without fever. She states that she developed symptoms about 9 days ago however they have progressively worsened. She states that she initially got that she just had a cold. She states that she was around someone who had been ill but they did test negative for Covid so she did not think that she would have it. Patient states that she is otherwise healthy. She does not take any prescription medications. She does not smoke, drinks alcohol occasionally and does not consume recreational street drugs. Throat Pain Score (Numeric/FACES): 7 Upper Back Pain Score (Numeric/FACES): 6 Chest Pain Score (Numeric/FACES): 8 Generalized Pain Score (Numeric/FACES): 5 - Related Data Allergies Allergy/AdvReac Type Severity Reaction Status Date / Time Sulfa (Sulfonamide Allergy Severe Seizure Verified 08/06/21 11:15 Antibiotics) Home Meds: Home Meds Ondansetron [Zofran ODT] 4 mg PO Q6H PRN #12 tab.dis 08/06/21 [Rx] dexAMETHasone [Dexamethasone] 6 mg PO DAILY #15 tablet 08/06/21 [Rx] Past Medical History [employer] History: Reports: Ectopic - Infectious Disease History Infectious Disease History: Reports: Chicken Pox, Novel Coronavirus - Past Surgical History HEENT Surgical History: Reports: Oral Surgery Musculoskeletal Surgical History: Reports: Other (See Below) Other Musculoskeletal Surgeries/Procedures:: ganglion cyst removed from top of right hand Social & Family History - Tobacco Use Tobacco Use Status *Q: Never Tobacco User - Caffeine Use Caffeine Use: Reports: Soda, Tea - Recreational Drug Use Recreational Drug Use: No - Living Situation & Occupation Living situation: Reports: Single Occupation: Employed ED ROS GENERAL - Review of Systems Review Of Systems: Comprehensive ROS is negative, except as noted in HPI. ED EXAM, GENERAL - Physical Exam Exam: See Below Exam Limited By: No Limitations General Appearance: Alert, WD/WN, Mild Distress Ears: Normal External Exam, Hearing Grossly Normal Nose: Normal Inspection Throat/Mouth: Normal Inspection, Normal Lips, Normal Voice, No Airway Compromise Head: Atraumatic Neck: Normal Inspection, Supple Respiratory/Chest: No Respiratory Distress, Normal Breath Sounds, No Accessory Muscle Use, Chest Non-Tender, Crackles (Fine crackles noted to the right middle and bilateral lower lobes). No: Lungs Clear Cardiovascular: Normal Peripheral Pulses, Regular Rate, Rhythm, No Murmur Peripheral Pulses: 2+: Radial (L), Radial (R) GI/Abdominal: Normal Bowel Sounds, Soft, Non-Tender, No Distention (Female) Exam: Deferred Rectal (Female) Exam: Deferred Back Exam: Normal Inspection Extremities: Normal Inspection Neurological: Alert, Oriented, Normal Cognition Psychiatric: Normal Affect, Normal Mood Skin Exam: Warm, Dry, Intact, Normal Color, No Rash Lymphatic: No Adenopathy Course - Vital Signs Text/Narrative:: As stated above, patient presents with Covid type of symptoms. Upon exam, the patient does have a paroxysmal cough with deep inspiration. She does have fine crackles noted to the right middle and bilateral lower lobes. She complains of nausea without vomiting. O2 saturations are 100% at the time of my exam. Pa anthony will be swabbed for Covid. We will also obtain portable chest x-ray. Will order for the patient to have an albuterol MDI. Last Recorded V/S: Last Vital Signs Temp 97.4 F 08/06/21 11:19 Pulse 105 H 08/06/21 11:19 Resp 24 H 08/06/21 11:19 BP 130/83 08/06/21 11:19 Pulse Ox 98 08/06/21 11:19 - Orders/Labs/Meds Orders: Active Orders 24 hr Category Date Time Status RT Incentive Spirometry [RC] ASDIRECTED Care 08/06/21 13:28 Active RT Post Treatment Assessment [RC] Click to Edit Care 08/06/21 11:42 Active RT Pre-Treatment Assessment [RC] Click to Edit Care 08/06/21 11:42 Active Chest 1V Frontal [CR] Stat Exams 08/06/21 11:41 Taken RT Acapella [RESPCARE] Stat Oth 08/06/21 13:28 Active Labs: Laboratory Tests 08/06/21 08/06/21 Range/Units 11:20 12:35 Urine HCG, Qual Negative (NEGATIVE) SARS-CoV-2 RNA ([place]) Positive H (NEGATIVE) Meds: Medications Discontinued Medications Generic Name Dose Route Start Last Admin Trade Name Freq PRN Reason Stop Dose Admin Albuterol 0 gm 08/06/21 11:42 08/06/21 11:51 Albuterol 6.7 Gm Inhaler INH 08/06/21 11:43 2 inhalation ONETIME ONE Administration - Re-Assessments/Exams Free Text/Narrative Re-Assessment/Exam: 08/06/21 13:28 Patient's Covid swab is positive. 08/06/21 13:29 I have also ordered for the patient to have RT administer an incentive spirometer and Acapella for her to do at the time of discharge. She will be sent home with dexamethasone 6 mg daily for 10 days as well as Zofran ODT every 6 hours as needed nausea. 08/06/21 13:30 Portable view of the chest was reviewed. Scattered infiltrates noted to bilateral lungs consistent with Covid pneumonia. Formal radiologist report is pending. Departure - Departure Time of Disposition: 13:43 Disposition: Home, Self-Care 01 Condition: Good Clinical Impression: COVID-19 - Discharge Information Prescriptions: dexAMETHasone [Dexamethasone] 6 mg PO DAILY #15 tablet Ondansetron [Zofran ODT] 4 mg PO Q6H PRN #12 tab.dis PRN Reason: Nausea/Vomiting Instructions: COVID-19: Quarantine vs. Isolation - [facility] (11/04/2020), Frequently Asked Questions About COVID-19 Vaccination - [facility] (03/15/2021) Referrals: Sheri Kaminski PA-C [Primary Care Provider] - Forms: ED Department Discharge Additional Instructions: You were seen in the emergency department today with Covid type symptoms. Covid swab was completed and you did test positive for Covid. Chest x-ray was completed and it does show scattered areas of pneumonia consistent with Covid. However, as discussed antibiotics will not treat this due to it being caused by a virus. While in the emergency department you received an albuterol inhaler. You can use this every 2-4 hours as needed for shortness of breath. Keep in mind that if you are consistently using it every 2 hours you may experience heart palpitations. Please use your incentive spirometer and Acapella as instr ucted by the respiratory therapist. This will help keep your airways open and decrease your shortness of breath. Also recommend sleeping on your stomach as this has been shown to make any huge difference in the shortness of breath and the development of worsening pneumonia. I have sent a prescription to your pharmacy for a steroid medication called dexamethasone. You will need to take 1-1/2 tabs daily for the next 10 days. This should help to decrease the inflammatory response associated with Covid. I have also sent prescription called Zofran to your pharmacy. This medication is used to treat nausea and vomiting. You may take 1 tab, place it under your tongue and wait approximately 30 minutes to eat or drink. You can take this medication every 6 hours as needed for nausea and vomiting. Go home and rest. Be sure to drink plenty of fluids. Should you become severe Renzo short of breath, do not hesitate returning to the emergency department. Sepsis Event Note (ED) - Focused Exam Vital Signs: Vital Signs Temp Pulse Resp BP Pulse Ox 08/06/21 11:19 97.4 F 105 H 24 H 130/83 98 - My Orders Last 24 Hours: My Active Orders 08/06/21 11:41 Chest 1V Frontal [CR] Stat 08/06/21 11:42 RT Post Treatment Assessment [RC] Click to Edit RT Pre-Treatment Assessment [RC] Click to Edit 08/06/21 13:28 RT Incentive Spirometry [RC] ASDIRECTED RT Acapella [RESPCARE] Stat - Assessment/Plan Last 24 Hours: My Active Orders 08/06/21 11:41 Chest 1V Frontal [CR] Stat 08/06/21 11:42 RT Post Treatment Assessment [RC] Click to Edit RT Pre-Treatment Assessment [RC] Click to Edit 08/06/21 13:28 RT Incentive Spirometry [RC] ASDIRECTED RT Acapella [RESPCARE] Stat
--- NOTE | 2021-08-06 13:55 | CR ---
Chest: Frontal view of the chest was obtained. Comparison: No prior chest imaging is available. Heart size and mediastinum are within normal limits. Patchy areas of increased density are seen on both sides of the chest. Bony structures show nothing acute. Impression: 1. Findings within both sides of the chest are compatible with moderately prominent COVID pneumonia. Diagnostic code #3
== END 2021-08-06 14:10 | disposition home or self-care (01) ==
LOC: JD.ED 10:58
DX: U07.1 COVID-19 (principal); Z88.2 Allergy status to sulfonamides
CPT/HCPCS: 71045; 81025; 87635; 94640; 99285; A9270; 99283; U0002

== ENCOUNTER 2025-05-11 06:54 | Emergency (ER) | payer BC ==
[2025-05-11 07:40] LABS: APPEARANCE,URINE CLEAR (Clear); BILIRUBIN,URINE NEGATIVE (Negative); COLOR,URINE YELLOW (Yellow); GLUCOSE,URINE NEGATIVE (Negative); KETONES,URINE NEGATIVE (Negative); LEUKOCYTE ESTERASE,URINE NEGATIVE (Negative); NITRITE,URINE NEGATIVE (Negative); OCCULT BLOOD,URINE NEGATIVE (Negative); PROTEIN,URINE NEGATIVE (Negative); UROBILINOGEN,URINE 0.2 (0.2-1.0)
[2025-05-11 07:48] LABS: BARBITURATE SCREEN,URINE NEGATIVE (CUTOFF=200); BENZODIAZEPINES SCREEN,URINE NEGATIVE (CUTOFF=150); BUPRENORPHINE SCREEN,URINE NEGATIVE (CUTOFF=10); METHADONE SCREEN, URINE NEGATIVE (CUTOFF=200); METHAMPHETAMINES SCREEN, URINE NEGATIVE (CUTOFF=500); OXYCODONE SCREEN,URINE NEGATIVE (CUT0FF=100); THC SCREEN,URINE 20 NG/ML NEGATIVE (CUTOFF=50)
[2025-05-11] MEDS: Sodium Chloride 0.9% 1,000 ML IV SCH (07:48)
[2025-05-11 07:49] LABS: AMPHETAMINES SCREEN, URINE NEGATIVE (CUTOFF=500)
[2025-05-11 07:51] LABS: BASOPHILS ABSOLUTE AUTO 0.1 K/mm3 (0.0-0.2); BASOPHILS PERCENT AUTO 0.6 % (0.0-1.0); EOSINOPHILS ABSOLUTE AUTO 0.2 K/mm3 (0.0-0.4); HEMATOCRIT 45.9 % (37.0-47.0); HEMOGLOBIN 14.9 gm/dl (12.0-16.0); IMMATURE GRAN ABSOLUTE AUTO 0.03 K/mm3 (0.00-0.05); IMMATURE GRAN PERCENT AUTO 0.2 % (0.0-0.4); LYMPHOCYTES ABSOLUTE AUTO 2.6 K/mm3 (1.0-4.8); LYMPHOCYTES PERCENT AUTO 20.8 % (24.0-44.0); MEAN CORPUSCULAR HEMOGLOBIN 27.5 pg (28.0-32.0); MEAN CORPUSCULAR HGB CONC 32.5 g/dl (32.0-36.0); MEAN CORPUSCULAR VOLUME 84.7 fl (83.0-99.0); MEAN PLATELET VOLUME 8.9 fl (9.4-12.3); MONOCYTES ABSOLUTE AUTO 0.6 K/mm3 (0.0-0.8); MONOCYTES PERCENT AUTO 4.5 % (0.0-8.0); NEUTROPHILS ABSOLUTE AUTO 8.9 K/mm3 (1.8-7.7); NEUTROPHILS PERCENT AUTO 71.9 % (41.0-71.0); PLATELET COUNT,PLT 391 K/mm3 (150-400); RED BLOOD CELL COUNT 5.42 M/mm3 (4.10-5.30)
[2025-05-11 08:22] LABS: A/G RATIO 0.8 (1-2); ALBUMIN 3.8 g/dl (3.4-5.0); ANION GAP 17.6 (5-15); BILIRUBIN TOTAL 0.3 mg/dL (0.2-1.0); CALCIUM 9.2 mg/dL (8.5-10.1); CREATININE 0.9 mg/dL (0.55-1.02); EST CRCL DRUG DOSING (CG) 89.69 mL/min; MAGNESIUM 2.2 mg/dL (1.8-2.4); POTASSIUM,K 3.6 mEq/L (3.5-5.1); PROTEIN TOTAL,TP 8.5 g/dl (6.4-8.2); TSH 6.513 uIU/mL (0.358-3.74)
[2025-05-11 08:40] LABS: T4 FREE 0.71 ng/dL (0.76-1.46)
== END 2025-05-11 09:07 | disposition home or self-care (01) ==
LOC: JD.ED 06:54
DX: E86.9 Volume depletion, unspecified (principal); R94.6 Abnormal results of thyroid function studies; Z88.2 Allergy status to sulfonamides; Z86.16 Personal history of COVID-19
CPT/HCPCS: 36415; 80053; 80306; 81003; 81025; 82550; 83735; 84439; 84443; 85025; 96360; 99284; J7030